=== PATIENT | female | born 1995 | race Caucasian/White ===

== ENCOUNTER 2024-01-14 12:07 | Inpatient (IN) | payer OTHER ==
[2024-01-14 12:47] VITALS: BMI 16.9
[2024-01-14] MEDS ORDERED: diazePAM 5 MG TABLET PO PRN (14:54)
[2024-01-14] MEDS ORDERED: NALOXONE HCL (KLOXXADO) 8 MG SPRAY NS PRN (14:54)
[2024-01-14] MEDS ORDERED: NICOTINE POLACRILEX 2 MG GUM BUC PRN (14:54)
[2024-01-14] MEDS ORDERED: ACETAMINOPHEN 325 MG TABLET (FP) PO PRN (14:54)
[2024-01-14] MEDS ORDERED: NALOXONE HCL 0.4 MG/ML VIAL IM PRN (14:54)
[2024-01-14] MEDS ORDERED: BENZONATATE 200 MG CAPSULE PO PRN (14:54)
[2024-01-14] MEDS ORDERED: MAGNESIUM HYDROX 2400MG/30ML ORAL SUSPENSION 30 ML CUP PO PRN (14:54)
[2024-01-14] MEDS ORDERED: cloNIDine HCL 0.1 MG TABLET PO PRN (14:54)
[2024-01-14] MEDS ORDERED: ONDANSETRON *ODT* 4 MG TABLET SL PRN (14:54)
[2024-01-14] MEDS ORDERED: LOPERAMIDE HCL 2 MG CAPSULE PO PRN (14:54)
[2024-01-14] MEDS ORDERED: BISMUTH SUBSALICYLATE 524 MG/30 ML PO PRN (14:54)
[2024-01-14] MEDS ORDERED: BENZOCAINE/MENTHOL (CHLORASEPTIC ) LOZENGE MM PRN (14:54)
[2024-01-14] MEDS ORDERED: POLYETHYLENE GLYCOL (HEALTHYLAX) 3350 17 GM PACKET PO PRN (14:54)
[2024-01-14] MEDS ORDERED: IBUPROFEN 600 MG TABLET (FP) PO PRN (14:54)
[2024-01-14] MEDS ORDERED: P-EPHED 60MG/TRIPROLIDI 2.5MG TABLET PO PRN (14:54)
[2024-01-14] MEDS ORDERED: IBUPROFEN 400 MG TABLET (FP) PO PRN (14:54)
[2024-01-14] MEDS ORDERED: MAG HYDROX/AL HYDROX/SIMETH 30 ML UNIT-DOSE CUP PO PRN (14:54)
[2024-01-14] MEDS ORDERED: guaiFENesin 600 MG TABLET.ER (FP) PO PRN (14:54)
[2024-01-14] MEDS ORDERED: DICYCLOMINE HCL 10 MG CAPSULE PO PRN (14:54)
[2024-01-14] MEDS: methaDONE HCL 10 MG TABLET (FOR DETOX USE ONLY) PO ONE (15:13)
[2024-01-14] MEDS ORDERED: methaDONE HCL 10 MG TABLET (FOR DETOX USE ONLY) ONE (15:17)
[2024-01-14] MEDS: diazePAM 5 MG TABLET PO SCH (17:10)
[2024-01-14] MEDS ORDERED: diazePAM 5 MG TABLET ONE ×2 (17:14→17:19)
[2024-01-14] MEDS: THIAMINE HCL 100 MG TABLET (FP) PO SCH (22:37)
[2024-01-14] MEDS: MELATONIN 5 MG TABLETS PO SCH (22:43)
[2024-01-15] MEDS ORDERED: MISOPROSTOL 200 MCG TABLET PO SCH (10:00)
[2024-01-15] MEDS: PRENATAL VITAMINS W/ FOLIC ACID TABLET (FP) PO SCH (10:40)
[2024-01-15 10:44] LABS: HEMATOCRIT 30.8 % (32.4-45.2); HEMOGLOBIN 10.4 GM/dL (10.7-15.3); MCH 27.6 pg (25.7-33.7); MCHC 33.7 g/dl (32.0-36.0); MEAN CELL VOLUME 82.1 fl (80-96); MEAN PLT VOLUME 7.8 fl (7.5-11.1); PLATELET COUNT 287 10^3/uL (134-434); RBC 3.76 M/mm3 (3.60-5.2); RDW 13.8 % (11.6-15.6); WHITE BLOOD COUNT 4.7 K/mm3 (4.0-10.0)
[2024-01-15 10:48] LABS: CHLORIDE 107 mmol/L (98-107); POTASSIUM 3.8 mmol/L (3.5-5.1); SODIUM 141 mmol/L (136-145)
[2024-01-15 10:51] LABS: ANION GAP 6 mmol/L (4-13); BLOOD UREA NITROGEN 14.5 mg/dL (7-18); CALCIUM 9.6 mg/dL (8.5-10.1); CO2 28 mmol/L (21-32); GLUCOSE,RANDOM 118 mg/dL (74-106)
[2024-01-15 10:54] LABS: CREATININE 0.7 mg/dL (0.55-1.3); SGOT/AST 13 U/L (15-37); SGPT/ALT 19 U/L (13-61)
[2024-01-15 10:56] LABS: BILIRUBIN,TOTAL 0.5 mg/dL (0.2-1); TOT PROT 6.6 g/dl (6.4-8.2)
[2024-01-15 10:57] LABS: ALK PHOS 54 U/L (45-117)
[2024-01-15 12:12] LABS: HIV INTERPRETATION NEGATIVE (NEGATIVE)
[2024-01-15] MEDS: hydrOXYzine PAMOATE 25 MG CAPSULE (FP) PO PRN (18:06)
[2024-01-15] MEDS: METHOCARBAMOL 500 MG TABLET PO PRN (23:00)
[2024-01-16] MEDS: diazePAM 5 MG TABLET PO SCH (05:55)
[2024-01-16] MEDS: methaDONE HCL 10 MG TABLET (FOR DETOX USE ONLY) PO ONE (10:04)
[2024-01-16 13:54] VITALS: BP 100/62; PULSE 65; RESP 16; TEMP 98.6
[2024-01-17] MEDS ORDERED: diazePAM 5 MG TABLET PO SCH (06:00)
[2024-01-18] MEDS ORDERED: diazePAM 5 MG TABLET PO ONE (06:00)
[2024-01-18] MEDS ORDERED: methaDONE HCL 10 MG TABLET (FOR DETOX USE ONLY) PO ONE (10:00)
== END 2024-01-16 18:06 | disposition left against medical advice (07) | DRG 770 ==
LOC: YASAS 12:07 → Y6N 16:53
PROVIDERS: ADMIT Allergy & Immunology; ATTEND Allergy & Immunology
PROC: HZ2ZZZZ Detoxification Services for Substance Abuse Treatment (ICD-10-PCS; principal; 2024-01-14)
DX: F11.23 Opioid dependence with withdrawal (principal); F13.230 Sedative, hypnotic or anxiolytic dependence with withdrawal, uncomplicated; F14.20 Cocaine dependence, uncomplicated; F17.210 Nicotine dependence, cigarettes, uncomplicated; F19.282 Other psychoactive substance dependence with psychoactive substance-induced sleep disorder; F19.280 Other psychoactive substance dependence with psychoactive substance-induced anxiety disorder
CPT/HCPCS: 36415; 80053; 80305; 80307; 81025; 85027; 86780; 87389; 87635; 93005; 93010

== ENCOUNTER 2024-11-22 22:10 | Inpatient (IN) | payer OTHER ==
[2024-11-22 23:02] VITALS: BMI 16.0
[2024-11-23] MEDS ORDERED: POLYETHYLENE GLYCOL (HEALTHYLAX) 3350 17 GM PACKET PO PRN (00:10)
[2024-11-23] MEDS ORDERED: MAGNESIUM HYDROX 2400MG/30ML ORAL SUSPENSION 30 ML CUP PO PRN (00:10)
[2024-11-23] MEDS ORDERED: MAG HYDROX/AL HYDROX/SIMETH 30 ML UNIT-DOSE CUP PO PRN (00:10)
[2024-11-23] MEDS ORDERED: LOPERAMIDE HCL 2 MG CAPSULE PO PRN (00:10)
[2024-11-23] MEDS ORDERED: guaiFENesin 600 MG TABLET.ER (FP) PO PRN (00:10)
[2024-11-23] MEDS ORDERED: DICYCLOMINE HCL 10 MG CAPSULE PO PRN (00:10)
[2024-11-23] MEDS ORDERED: BISMUTH SUBSALICYLATE 524 MG/30 ML PO PRN (00:10)
[2024-11-23] MEDS ORDERED: BENZONATATE 200 MG CAPSULE PO PRN (00:10)
[2024-11-23] MEDS ORDERED: BENZOCAINE/MENTHOL (CHLORASEPTIC ) LOZENGE MM PRN (00:10)
[2024-11-23] MEDS ORDERED: NALOXONE (NARCAN) HCL 4 MG/0.1 ML SPRAY NS PRN (00:10)
[2024-11-23] MEDS ORDERED: ONDANSETRON *ODT* 4 MG TABLET SL PRN (00:10)
[2024-11-23] MEDS ORDERED: ACETAMINOPHEN 325 MG TABLET (FP) PO PRN (00:10)
[2024-11-23] MEDS ORDERED: cloNIDine HCL 0.1 MG TABLET PO PRN (00:13)
[2024-11-23] MEDS ORDERED: diazePAM 5 MG TABLET PO PRN (00:14)
[2024-11-23] MEDS: methaDONE HCL 10 MG TABLET (FOR DETOX USE ONLY) PO ONE (01:30)
[2024-11-23] MEDS: diazePAM 5 MG TABLET PO SCH (05:02)
[2024-11-23] MEDS: PRENATAL VITAMINS W/ FOLIC ACID TABLET (FP) PO SCH (10:50)
[2024-11-23] MEDS: methaDONE HCL 10 MG TABLET (FOR DETOX USE ONLY) PO PRN (15:21)
[2024-11-23] MEDS: MELATONIN 5 MG TABLETS PO SCH (22:37)
[2024-11-23] MEDS: THIAMINE 100 MG TABLET PO SCH (22:37)
[2024-11-24] MEDS: diazePAM 5 MG TABLET PO SCH (05:58)
[2024-11-24] MEDS: METHOCARBAMOL 500 MG TABLET PO PRN (10:35)
[2024-11-24] MEDS: hydrOXYzine PAMOATE 25 MG CAPSULE (FP) PO PRN (10:37)
[2024-11-24] MEDS ORDERED: methaDONE HCL 40 MG DISPERSABLE TABLET PO ONE (12:05)
[2024-11-25] MEDS: diazePAM 5 MG TABLET PO SCH (05:42)
[2024-11-25] MEDS: methaDONE 40 MG, methaDONE 20 MG PO ONE (09:22)
[2024-11-25] MEDS ORDERED: methaDONE HCL 10 MG TABLET (FOR DETOX USE ONLY) PO ONE (10:00)
[2024-11-25 14:17] LABS: HEMATOCRIT 39.2 % (32.4-45.2); HEMOGLOBIN 12.9 GM/dL (10.7-15.3); MCH 26.6 pg (25.7-33.7); MCHC 32.9 g/dl (32.0-36.0); MEAN CELL VOLUME 80.7 fl (80-96); MEAN PLT VOLUME 7.9 fl (7.5-11.1); PLATELET COUNT 289 10^3/uL (134-434); RBC 4.86 M/mm3 (3.60-5.2); WHITE BLOOD COUNT 6.4 K/mm3 (4.0-10.0)
[2024-11-25 14:59] LABS: POTASSIUM 3.9 mmol/L (3.5-5.1)
[2024-11-25 15:07] LABS: BLOOD UREA NITROGEN 17.2 mg/dL (7-18)
[2024-11-25 15:09] LABS: ALBUMIN 3.6 g/dl (3.4-5.0); BILIRUBIN,TOTAL 0.4 mg/dL (0.2-1)
[2024-11-25 15:11] LABS: CREATININE 0.7 mg/dL (0.55-1.3); TOT PROT 7.4 g/dl (6.4-8.2)
[2024-11-25] MEDS: IBUPROFEN 600 MG TABLET (FP) PO PRN (15:46)
[2024-11-26] MEDS ORDERED: cloNIDine HCL 0.1 MG TABLET PO PRN
[2024-11-26] MEDS: diazePAM 5 MG TABLET PO ONE (05:37)
[2024-11-26] MEDS: methaDONE 40 MG, methaDONE 30 MG PO ONE (09:44)
[2024-11-27] MEDS: IBUPROFEN 400 MG TABLET (FP) PO PRN (02:38)
[2024-11-27] MEDS: NALOXONE (NYS OPIOID OVERDOSE PROGRAM) 4 MG/0.1 ML SPRAY NS SCH (08:30)
[2024-11-27] MEDS: methaDONE HCL 40 MG DISPERSABLE TABLET PO ONE (09:57)
[2024-11-27] MEDS ORDERED: methaDONE HCL 10 MG TABLET (FOR DETOX USE ONLY) PO ONE (10:00)
[2024-11-28] MEDS: methaDONE 80 MG, methaDONE 10 MG PO ONE (10:02)
[2024-11-28] MEDS: NICOTINE 21 MG/24 HOURS TOPICAL PATCH TD SCH (11:11)
[2024-11-28] MEDS: NICOTINE POLACRILEX 2 MG GUM BUC PRN (13:43)
[2024-11-29 09:46] VITALS: BP 103/57; PULSE 66; RESP 17; TEMP 97.6
[2024-11-29] MEDS: NALOXONE (NYS OPIOID OVERDOSE PROGRAM) 4 MG/0.1 ML SPRAY NS SCH (10:00)
== END 2024-11-29 09:10 | disposition home or self-care (01) | DRG 773 ==
LOC: YASAS 22:10 → Y6N 11-23 00:58
PROVIDERS: ADMIT Allergy & Immunology; ATTEND Surgery
PROC: HZ2ZZZZ Detoxification Services for Substance Abuse Treatment (ICD-10-PCS; principal; 2024-11-23)
DX: F11.23 Opioid dependence with withdrawal (principal); F13.230 Sedative, hypnotic or anxiolytic dependence with withdrawal, uncomplicated; F14.20 Cocaine dependence, uncomplicated; F17.290 Nicotine dependence, other tobacco product, uncomplicated; F19.280 Other psychoactive substance dependence with psychoactive substance-induced anxiety disorder; F19.282 Other psychoactive substance dependence with psychoactive substance-induced sleep disorder; E78.5 Hyperlipidemia, unspecified; M41.9 Scoliosis, unspecified
CPT/HCPCS: 36415; 80053; 80305; 81025; 85027; 86780; 93005; 93010